=== PATIENT | male | born 1980 | race Caucasian/White ===

== ENCOUNTER 2019-06-14 12:44 | Emergency (ER) | payer SELFPAY ==
[~2019-06-14] VITALS: Ht 190.5 cm; Wt 88.0 kg
== END 2019-06-14 17:00 | disposition short-term general hospital (02) ==
LOC: ED 12:44
DX: L03.113 Cellulitis of right upper limb (principal)
CPT/HCPCS: 73130; 80053; 83605; 85025; 96365; 96366; 96367; 96375; 96376; 99284-25; J2270; J2543; J3370; J7060